=== PATIENT | female | born 1990 | race Caucasian/White ===

== ENCOUNTER 2017-04-07 16:59 | Emergency (ER) | payer OTHER ==
[~2017-04-07] VITALS: Ht 170.2 cm; Wt 51.7 kg
[~2017-04-07 16:59] MED LIST: CLARITIN10 M3 PO; KLONOPIN0.5 M1 PO; MOTRIN600 MG PO; REMERON15 M2 PO
[2017-04-07 17:03] VITALS: BP 112/75
[2017-04-07] MEDS ORDERED: MOTRIN600 MG PO (17:38)
[2017-04-07] MEDS ORDERED: FLEXERIL10 MG PO (17:38)
== END 2017-04-07 18:25 | disposition home or self-care (01) ==
LOC: EME 16:59
DX: S33.5XXA Sprain of ligaments of lumbar spine, initial encounter (principal); V49.10XA Passenger injured in collision with unspecified motor vehicles in nontraffic accident, initial encounter; Y92.410 Unspecified street and highway as the place of occurrence of the external cause; Z85.72 Personal history of non-Hodgkin lymphomas; Z88.0 Allergy status to penicillin; Z88.6 Allergy status to analgesic agent; F17.200 Nicotine dependence, unspecified, uncomplicated
CPT/HCPCS: 99281; 99284